=== PATIENT | female | born 1935 | race Caucasian/White ===

== ENCOUNTER 2017-03-28 09:25 | Emergency (ER) | payer MEDICARE ==
--- NOTE | 2017-03-28 10:05 | ERNOTE ---
Trauma/Assault HPI - Narrative Date of Service: 03/28/17 - General Stated Complaint: KNOCKED DOWN LEFT SIDE AND HEAD PAIN Time Seen by Provider: 03/28/17 09:49 Source: patient Exam Limitations: no limitations - Immun/Allergies/Home Medications Immunizations: IMMUNIZATION HX Immunizations Up to Date Yes History of Influenza Vaccine Yes Hx Pneumococcal Vaccination Yes Allergies/Adverse Reactions: Allergies ciprofloxacin Allergy (Severe, Verified 03/28/17 09:39) Shortness of Breath kiwi Allergy (Mild, Verified 03/28/17 09:39) Hives lorazepam Allergy (Verified 03/28/17 09:39) clindamycin Adverse Reaction (Intermediate, Verified 03/28/17 09:39) Other Hallucinations Sulfa (Sulfonamide Antibiotics) Adverse Reaction (Mild, Verified 03/28/17 09:39) Nausea Home Medications: HOME MEDICATIONS Aspirin [Aspirin Enteric Coated] 162.5 mg PO BID 08/27/15 [Last Taken 07/04/16] Carvedilol [Coreg] 12.5 mg PO BID 08/27/15 [Last Taken 07/05/16 05:00] Lisinopril [Prinivil] 20 mg PO DAILY 08/27/15 [Last Taken 07/04/16] Multivit-Min/FA/Lycopen/Lutein [Centrum Silver Tablet] 1 each PO DAILY 08/27/15 [Last Taken 07/04/16] Simvastatin [Zocor] 20 mg PO HS 08/27/15 [Last Taken 07/04/16] Vit C/E/Zn/Coppr/Lutein/Zeaxan [Ocuvite Lutein & Zeaxanthin Cp] 1 each PO DAILY 08/27/15 [Last Taken 07/04/16] Vitamin B Complex Vit C No.4 [Super B Complex] 150 mg PO DAILY 08/27/15 [Last Taken 07/04/16] metFORMIN HCL [Glucophage] 1,000 mg PO BIDWM 08/27/15 [Last Taken 07/04/16] Ascorbic Acid/Vitamin E/Biotin [Hair Skin Nails-Biotin Gummies] 1 each PO DAILY 06/25/16 [Last Taken 07/04/16] Ca/D3/Mag Ox/Zinc/Bakery Machine Mechanic Supervisor/Marv/Bor [Calcium 600+D3 Plus Caplet] 1 each PO DAILY 09/09 [Last Taken 07/04/16] Naproxen Sodium [Aleve] 220 mg PO Q8H 06/25/16 [Last Taken 07/04/16] - History of Present Illness Narrative: Pt. ambulates into ER with c/o L shoulder and headache after she was knocked down by a goat yesterday at 1530. Pt. denies any LOC but does state that she had to lie there for 20 minutes to get her bearings until she was able to get up and walk to the house. Pt. states that she takes an aspirin a day and that she has a hx of shoulder problems but states that it usually is not that bad. Pt. denies any numbness tingling, dizziness, Nausea, vomiting, SOB, CP, or posterior midline neck pain. Pt. does c/o L lateral neck pain and headache with decreased ROM in affected shoulder. Pt. states that it inhibited her sleep and she denies any alleviating factors or prehospital treatment. Review of Systems - Review of Systems Constitutional: Present: no symptoms reported. Absent: recent illness, fever, chills, weakness, fatigue, malaise EYE: Present: no symptoms reported ENT: Present: no symptoms reported Respiratory: Present: no symptoms reported. Absent: shortness of breath, cough , wheezing Cardiology: Present: no symptoms reported. Absent: chest pain, palpitations, edema Gastrointestinal/Abdominal: Present: no symptoms reported. Absent: nausea, vomiting, diarrhea Genitourinary: Present: no symptoms reported Musculoskeletal: Present: neck pain - L lateral, joint pain - L shoulder. Absent: back pain Skin: Present: no symptoms reported Neurological: Present: headache. Absent: dizziness/light-headedness, numbness, tingling All Other Systems: All systems neg except as marked - Patient's Past Medical History Patient History - Medical: Diabetes Type 2, GERD Patient History - Cardiac/Respiratory: Hypertension, Hyperlipidemia, Pneumonia, Other Patient History - Cancer: No Hx of Cancer Patient History - Surgical Procedures: Cataracts, Cholecystectomy, Colonoscopy, D & C, Total Knee Replacement, Tubal Ligation, T & A, Other Patient History - Other: None LMP (females 10-50): Menopausal - Family History Mother Family History - Medical: Diabetes Type 2 Family History - Cardiac/Respiratory: CHF - Social History Living Situations: home Abuse History: No History of abuse Psych History: No pertinent hx Smoking Status: Never smoker Alcohol Use: none Drug Use: none - Immunizations Immunizations Up to Date: Yes Hx Pneumococcal Vaccination: Yes History of Influenza Vaccine: Yes Physical Exam - Physical Exam General Appearance: Present: wd/wn, alert, no apparent distress Head Exam: Present: contusions - L occiput with superficial open abrasion 1cm x 0.3cm Eye Exam: Normal inspection: bilateral, PERRL: bilateral, EOMI: bilateral Ears, Nose, Throat: Present: normal ENT inspection, normal pharynx Neck: Present: tender lateral - L post SCM muscle. Absent: tender posterior midline Respiratory: Present: no respiratory distress, normal breath sounds, no accessory muscle use, chest nontender, lungs clear Cardiovascular/Chest: Present: regular rate, rhythm, normal peripheral pulses, systolic murmur Gastrointestinal/Abdominal: Present: normal bowel sounds, nontender, nondistended, soft, no organomegaly Back Exam: Present: normal inspection, normal range of motion, no vertebral tenderness Extremity Exam: Present: decreased range of motion, bony tenderness - L clavicle and prox humerus, joint swelling - L shoulder Neurological Exam: Present: alert, oriented, normal mood/affect, no motor/ sensory deficits Skin Exam: Present: normal color, warm/dry. Absent: pallor, skin rash - C-Spine cleared by: Neg history & exam - T, L-Spine cleared by: Neg hx and exam ED Progress - Date and Time Seen: Date and Time: 03/28/17 10:42 Pt. is on naproxen currently and feel that narcotics would be dangerous in this elderly woman with multiple falls so will have her placed in sling and start on Tylenol 1 gram q 6 hr scheduled. - Results and Orders Patient's Lab Results:: I have reviewed the patient's lab results. - Vital Signs Patient's Vital Signs:: I have reviewed the patient's vital signs. Vital Signs: Vital Signs 03/28/17 09:35 Temperature 36.7 C Pulse Rate 84 Respiratory 16 Rate Blood Pressure 156/67 O2 Sat by Pulse 99 Oximetry - X-Ray X-Ray #1 X-Ray: shoulder Interpretation: Reviewed by me X-ray Comments: no acute fractures - CT/Ultrasound CT/Ultrasound Narrative: CT head without any acute process - Progress/Reassessment Chief Complaint: Fall Departure Clinical Impression: Head contusion Qualifiers: Encounter type: initial encounter Contusion of head detail: scalp Qualified Code(s): S00.03XA - Contusion of scalp, initial encounter Rotator cuff (capsule) sprain Qualifiers: Encounter type: initial encounter Laterality: left Qualified Code(s): S43.422A - Sprain of left rotator cuff capsule, initial encounter - Departure Disposition: Home self-care Condition: Good Instructions: Head Injury, Adult, [id number], Rotator Cuff Injury Additional Instructions: Please follow up with ortho for injection as scheduled of shoulder and follow up with Dr Martin in 2-3 days. Please start taking Tylenol 1000mg every 6hours for pain Referrals: Lore Martin DO [Primary Care Provider] -
[2017-03-28 10:12] LABS: Hematocrit 32.8 % (37.0-47.0); Hemoglobin 10.6 gm/dL (12.5-16.0); Mean Cell Volume 90.9 fl (78-100); Mean Corpuscular Hemoglobin 29.4 pg (27-31); Mean Corpuscular Hgb Conc 32.3 g/dl (32-36); Neutrophil # 4.7 K/mm3 (1.3-6.0); Neutrophil % 66.2 % (42-75.0); Platelet Count 209 K/mm3 (150-450); Red Blood Count 3.61 M/mm3 (4.2-5.4); Red Cell Distribution Width 12.3 % (11.5-14.0); White Blood Count 7.1 K/mm3 (4.0-10.5)
[2017-03-28 10:23] LABS: Albumin * 3.8 gm/dl (3.4-5.0); Anion Gap 14.1 mmol/L (6.8-13.8); BUN/Creatinine Ratio 14.2 (9.0-21.6); Ca. Corrected For Albumin 9.2 mg/dL (8.4-10.2); Calcium * 9.4 mg/dL (7.9-10.9); Carbon Dioxide 27.6 mmol/L (24-32.6); Potassium 4.7 mmol/L (3.4-4.6); Total Protein 6.7 gm/dL (6.2-8.2)
[2017-03-28] MEDS ORDERED: KETOROLAC TROMETHAMINE 30 MG/ML VIAL IM ONE (10:40)
[2017-03-28] MEDS ORDERED: KETOROLAC TROMETHAMINE 30 MG/ML VIAL ONE (10:49)
[2017-03-28 11:01] VITALS: BP 150/74
== END 2017-03-28 11:05 | disposition home or self-care (01) ==
LOC: ER 09:25
DX: S00.03XA Contusion of scalp, initial encounter (principal); S43.422A Sprain of left rotator cuff capsule, initial encounter; W19.XXXA Unspecified fall, initial encounter; Z91.81 History of falling; E11.9 Type 2 diabetes mellitus without complications; K21.9 Gastro-esophageal reflux disease without esophagitis; I10 Essential (primary) hypertension; E78.5 Hyperlipidemia, unspecified

== ENCOUNTER 2017-07-04 05:57 | Inpatient (IN) | payer MEDICARE ==
[2017-07-04] MEDS ORDERED: ceFAZolin SODIUM 1 GM VIAL IV PRN (06:00)
[2017-07-04] MEDS ORDERED: RINGER'S SOLUTION,LACTATED 1,000 ML IV PRN (06:00)
[2017-07-04] MEDS ORDERED: INSULIN REGULAR, HUMAN 100 UNITS/ML VIAL IV ONE (07:36)
[2017-07-04] MEDS ORDERED: ONDANSETRON HCL/PF 2 MG/ML VIAL IV PRN ×2 (07:37→10:30)
[2017-07-04] MEDS ORDERED: ONDANSETRON HCL/PF 2 MG/ML VIAL ONE (07:48)
[2017-07-04] MEDS ORDERED: RINGER'S SOLUTION,LACTATED 1,000 ML IV ONE ×2 (07:55→08:52)
--- NOTE | 2017-07-04 10:29 | POSTOP NO ---
Date of Surgery: 07/04/17 Patient Tolerated the Procedure: Well Post Operative Diagnosis/Procedures: Rock Singer: Hai Saravia PA-C Post-operative Diagnosis: Rotator cuff deficient left shoulder arthrosis Finding: Above Procedure: Left reverse total shoulder Estimated Blood Loss: 100 ml Specimens: Bone for disposal
[2017-07-04] MEDS ORDERED: ACETAMINOPHEN 500 MG TABLET PO PRN (10:30)
[2017-07-04] MEDS ORDERED: ACETAMINOPHEN 500 MG TABLET PO SCH (10:30)
[2017-07-04] MEDS ORDERED: MAG HYDROX/ALUMINUM HYD/SIMETH 30 ML UDC PO PRN (10:30)
[2017-07-04] MEDS ORDERED: MAGNESIUM HYDROXIDE 30 ML UDC PO PRN (10:30)
[2017-07-04] MEDS ORDERED: diphenhydrAMINE HCL 50 MG/ML VIAL IV PRN (10:30)
[2017-07-04] MEDS ORDERED: HYDROmorphone HCL 1 MG/ML DISP.SYRIN IV PRN (10:30)
[2017-07-04] MEDS ORDERED: PROMETHAZINE HCL 5 MG in DEXTROSE 5 % IN WATER 50 ML IV PRN ×2 (10:30)
[2017-07-04] MEDS ORDERED: ZOLPIDEM TARTRATE 5 MG TABLET PO PRN (10:30)
[2017-07-04] MEDS ORDERED: LORATADINE 10 MG TABLET PO PRN (10:33)
[2017-07-04] MEDS ORDERED: PANTOPRAZOLE SODIUM 40 MG TABLET.EC PO PRN (10:33)
[2017-07-04] MEDS ORDERED: FLUTICASONE PROPIONATE 120 SPRAY INHALER NS PRN (10:33)
[2017-07-04] MEDS ORDERED: WHEAT DEXTRIN PO PRN (10:33)
[2017-07-04] MEDS: RINGER'S SOLUTION,LACTATED 1,000 ML IV PRN ×2 (11:44→20:55)
[2017-07-04] MEDS: KETOROLAC TROMETHAMINE 15 MG/ML VIAL IV SCH ×2 (11:45→16:47)
--- NOTE | 2017-07-04 12:04 | OR ---
Anesthesia Procedure Note - Anesthesia Procedure Note Date of Service: 07/04/17 Narrative: Vital Signs - Last Taken Temp 36.2 C L 07/04/17 11:59 Pulse 80 07/04/17 11:59 Resp 18 07/04/17 11:59 BP 172/76 07/04/17 11:59 Pulse Ox 97 07/04/17 11:59 O2 Oxygen Delivery Method Room Air 07/04/17 12:01 ANESTHESIA PROCEDURE NOTE Date of Procedure: 07/04/2017. Time of procedure: 754. Performed by: Maninder Magallanes CRNA Bank Operations Officer: None. Preprocedure diagnosis: Left shoulder pain, left rotator cuff tear. Post procedure diagnosis: Same. Procedure: Left ultrasound guided interacalene nerve block for postoperative analgesia. Indications: The patient is a 82 -year-old female, who is requesting a left ultrasound-guided interscalene nerve block for postoperative analgesia related to left reverse total shoulder arthroplasty. Findings: See below. Details of the procedure: The tissue over the intended target site was cleansed with ChloraPrep. 1 ml Lidocaine 1 % was infiltrated to the skin and subcutaneous tissue. Under sterile technique and ultrasound guidance a 22-gauge block needle was inserted to the left braclial plexus nerve bundle between the anterior scalene and the middle scalene muscles. 40 mL's of 0.5% bupivacaine plus epinephrine 1:200,000 was injected after negative aspiration for blood. Needle tip and spread of local anesthetic around the brachial plexus was observed throughout the injection with realtime ultrasound visualization. The needle was removed intact. No complications were noted. The images were retained in the hospital medical database . EBL: Minimal. Fluids: N/A. Specimen: N/A. Post procedure condition: The patient tolerated the procedure well. No complications were noted. Thank you for this consultation. Maninder Magallanes CRNA
[2017-07-04] MEDS: ACETAMINOPHEN WITH CODEINE 1 EACH TABLET PO PRN ×2 (13:38→20:24)
[2017-07-04] MEDS: ASPIRIN 81 MG TABLET.DR PO SCH (20:25)
[2017-07-04] MEDS: CARVEDILOL 12.5 MG TABLET PO SCH (20:27)
[2017-07-04] MEDS ORDERED: SENNOSIDES/DOCUSATE SODIUM 1 TAB TABLET PO SCH (21:00)
[2017-07-04] MEDS ORDERED: ROSUVASTATIN CALCIUM 20 MG TABLET PO SCH (21:00)
[2017-07-05] MEDS: KETOROLAC TROMETHAMINE 15 MG/ML VIAL IV SCH ×3 (00:27→11:22)
[2017-07-05] MEDS: ACETAMINOPHEN WITH CODEINE 1 EACH TABLET PO PRN ×2 (00:28→05:12)
[2017-07-05 05:12] VITALS: BP 108/43
[2017-07-05 05:50] LABS: Hematocrit 27.4 % (37.0-47.0); Mean Cell Volume 90.4 fl (78-100); Mean Corpuscular Hemoglobin 29.7 pg (27-31); Mean Corpuscular Hgb Conc 32.8 g/dl (32-36); Mean Platelet Volume 9.7 fl (6.0-9.5); Platelet Count 178 K/mm3 (150-450); Red Blood Count 3.03 M/mm3 (4.2-5.4); Red Cell Distribution Width 11.8 % (11.5-14.0); White Blood Count 9.4 K/mm3 (4.0-10.5)
[2017-07-05 06:02] LABS: Anion Gap 7.7 mmol/L (6.8-13.8); BUN/Creatinine Ratio 11.9 (9.0-21.6); Calcium * 8.8 mg/dL (7.9-10.9); Carbon Dioxide 29.8 mmol/L (24-32.6); Estimated Creat Clear 25.1; Potassium 4.5 mmol/L (3.4-4.6)
--- NOTE | 2017-07-05 08:08 | DS ---
(1) Rotator cuff tear arthropathy Problem: Chronic (2) Acute blood loss anemia Problem: Acute (3) Diabetes mellitus type 2 in nonobese Problem: Chronic (4) Hyperlipemia Problem: Chronic (5) Hypertension Problem: Chronic (6) Spinal stenosis Problem: Chronic Description of Stay: Mrs. Hand was admitted for pain control and IV antibiotics after undergoing reverse total shoulder arthroplasty on the left shoulder for chronic rotator cuff arthropathy. Patient reported main complaint was paresthesias in her hand as well as dysesthesias of her hand with mild left shoulder pain. She reports it is improving this morning. She reports she is tolerating pain medicine well. No nausea or vomiting or hallucinations associated with it. On exam she reported sensation intact to light touch throughout left upper extremity. She had no gross swelling in her lay out former. Bandages were clean dry intact. Overall course of stay was uneventful. She'll be discharged later this morning after working with therapy. She was instructed to keep her bandages clean and dry. We'll order home health to help with activities of daily living as well as OT for passive shoulder range of motion. She'll follow up in our office in 12-14 days for staple removal. She was discharged on her home medications as well as a prescription for Tylenol 3 for pain control. She is to call if any increasing fevers drainage redness warmth or concerns. Procedures Performed: see notes below List Procedures: Left reverse total shoulder arthroplasty Discharge Disposition: home augusto Disposition: Home self-care Condition: Good Discharge Activity: Activity as tolerated Discharge Diet: Consistent carbs, Low salt, Low fat/chol Senior Living Therapy: Occupation Therapy - [facility] Referrals: Lore Martin DO [Primary Care Provider] - Consultation Done:: Home augusto for ADLs and OT for codman exercises Additional Patient Instructions (free text): Follow up with Dr. Rabago on 07/19/2017 at 09:45 am. Prescriptions (Any new or edited meds): Acetaminophen with Codeine [Tylenol-Codeine 300 MG/30 MG] 1 each PO Q4H PRN #60 tablet PRN Reason: Pain Sennosides/Docusate Sodium [Senokot-S] 2 tab PO HS #30 tablet Complete Home Medications List: Complete Home Medication List: Aspirin [Aspirin Enteric Coated] 162.5 mg PO BID 08/27/15 Carvedilol [Coreg] 12.5 mg PO BID 08/27/15 Lisinopril [Prinivil] 20 mg PO DAILY 08/27/15 Multivit-Min/FA/Lycopen/Lutein [Centrum Silver Tablet] 1 each PO DAILY 08/27/15 metFORMIN HCL [Glucophage] 1,000 mg PO BIDWM 08/27/15 Naproxen Sodium [Aleve] 220 mg PO BID PRN 06/25/16 Acetaminophen with Codeine [Tylenol with Codeine #3 Tablet] 1 tab PO Q4H PRN 03/10 Blood-Glucose Meter [Blood Glucose Monitoring] 1 each MC BID 07/01/17 Calcium Carbonate/Vitamin D3 [Calcium 600-Vit D3 400 Tablet] 1 each PO DAILY 03/10 Fluticasone Propionate [Flonase] 2 spray NS DAILY PRN 07/01/17 Loratadine [Claritin] 10 mg PO DAILY PRN 07/01/17 Lutein/Zeaxanthin [Ocuvite Lutein 25-5 mg Softgel] 1 each PO DAILY 07/01/17 Omeprazole 40 mg PO DAILY PRN 07/01/17 Rosuvastatin Calcium [Crestor] 40 mg PO HS 07/01/17 Sennosides/Docusate Sodium [Senna-S Tablet] 1 - 2 each PO PRN PRN 07/01/17 Vitamin B Complex 1 each PO DAILY 07/01/17 Vitamin C/Biotin [Hair, Skin and Nails Gummies] 1 each PO DAILY 07/01/17 Wheat Dextrin [Benefiber] 1 tbs PO PRN PRN 07/01/17 Acetaminophen with Codeine [Tylenol-Codeine 300 MG/30 MG] 1 each PO Q4H PRN #60 tablet 07/05/17 Sennosides/Docusate Sodium [Senokot-S] 2 tab PO HS #30 tablet 07/05/17
[2017-07-05] MEDS ORDERED: VITAMIN C PO SCH (09:00)
[2017-07-05] MEDS ORDERED: LISINOPRIL 20 MG TABLET PO SCH (09:00)
[2017-07-05] MEDS ORDERED: VITAMIN B COMP W-C 1 TAB TABLET PO SCH (09:00)
[2017-07-05] MEDS ORDERED: CALCIUM CARBONATE/VITAMIN D3 1 TAB TABLET PO SCH (09:00)
[2017-07-05] MEDS ORDERED: MULTIVIT-MIN/FA/LYCOPEN/LUTEIN 1 TAB TABLET PO SCH (09:00)
[2017-07-05] MEDS ORDERED: BETA-CAROTENE(A) W-C , E/MIN 1 TAB TABLET PO SCH (09:00)
[2017-07-05] MEDS ORDERED: BIOTIN PO SCH (09:00)
[2017-07-05] MEDS: ASPIRIN 81 MG TABLET.DR PO SCH (09:03)
[2017-07-05] MEDS: CARVEDILOL 12.5 MG TABLET PO SCH (09:03)
== END 2017-07-05 12:00 | disposition home health service (06) | DRG 483 ==
LOC: MS 05:57
PROVIDERS: ADMIT Orthopaedic Surgery; ATTEND Orthopaedic Surgery
PROC: 0RRK00Z Replacement of Left Shoulder Joint with Reverse Ball and Socket Synthetic Substitute, Open Approach (ICD-10-PCS; principal; 2017-07-04)
DX: E11.9 Type 2 diabetes mellitus without complications; M19.012 Primary osteoarthritis, left shoulder; I10 Essential (primary) hypertension; D62 Acute posthemorrhagic anemia; Z79.84 Long term (current) use of oral hypoglycemic drugs; Z79.82 Long term (current) use of aspirin

== ENCOUNTER 2017-09-05 13:59 | Emergency (ER) | payer MEDICARE ==
--- NOTE | 2017-09-05 14:32 | ERNOTE ---
Medical Problem HPI - Narrative Date of Service: 09/05/17 - General Time Seen by Provider: 09/05/17 14:08 Source: patient Exam Limitations: no limitations - Immun/Allergies/Home Medications Immunizations: IMMUNIZATION HX Immunizations Up to Date Yes History of Influenza Vaccine Yes Hx Pneumococcal Vaccination Yes Allergies/Adverse Reactions: Allergies ciprofloxacin Allergy (Intermediate, Verified 07/04/17 06:42) Shortness of Breath kiwi Allergy (Intermediate, Verified 07/04/17 06:42) Swelling of Tongue lorazepam Allergy (Unknown, Verified 07/04/17 06:42) clindamycin Adverse Reaction (Intermediate, Verified 07/04/17 06:42) "SEES THINGS" Sulfa (Sulfonamide Antibiotics) Adverse Reaction (Mild, Verified 07/04/17 06:42) RASH, UPSET STOMACH tramadol [From Ultram] Adverse Reaction (Mild, Verified 07/04/17 06:42) HALLUCINATIONS Home Medications: HOME MEDICATIONS Aspirin [Aspirin Enteric Coated] 162.5 mg PO BID 08/27/15 [Last Taken 07/04/16] Carvedilol [Coreg] 12.5 mg PO BID 08/27/15 [Last Taken 07/05/16 05:00] Lisinopril [Prinivil] 20 mg PO DAILY 08/27/15 [Last Taken 07/04/16] Multivit-Min/FA/Lycopen/Lutein [Centrum Silver Tablet] 1 each PO DAILY 08/27/15 [Last Taken 07/04/16] metFORMIN HCL [Glucophage] 1,000 mg PO BIDWM 08/27/15 [Last Taken 07/04/16] Naproxen Sodium [Aleve] 220 mg PO BID PRN 06/25/16 [Last Taken 07/04/16] Acetaminophen with Codeine [Tylenol with Codeine #3 Tablet] 1 tab PO Q4H PRN 03/10 [Last Taken Unknown] Blood-Glucose Meter [Blood Glucose Monitoring] 1 each MC BID 07/01/17 [Last Taken Unknown] Calcium Carbonate/Vitamin D3 [Calcium 600-Vit D3 400 Tablet] 1 each PO DAILY 03/10 [Last Taken Unknown] Fluticasone Propionate [Flonase] 2 spray NS DAILY PRN 07/01/17 [Last Taken Unknown] Loratadine [Claritin] 10 mg PO DAILY PRN 07/01/17 [Last Taken Unknown] Lutein/Zeaxanthin [Ocuvite Lutein 25-5 mg Softgel] 1 each PO DAILY 07/01/17 [ Last Taken Unknown] Omeprazole 40 mg PO DAILY PRN 07/01/17 [Last Taken Unknown] Rosuvastatin Calcium [Crestor] 40 mg PO HS 07/01/17 [Last Taken Unknown] Sennosides/Docusate Sodium [Senna-S Tablet] 1 - 2 each PO PRN PRN 07/01/17 [ Last Taken Unknown] Vitamin B Complex 1 each PO DAILY 07/01/17 [Last Taken Unknown] Vitamin C/Biotin [Hair, Skin and Nails Gummies] 1 each PO DAILY 07/01/17 [Last Taken Unknown] Wheat Dextrin [Benefiber] 1 tbs PO PRN PRN 07/01/17 [Last Taken Unknown] Acetaminophen with Codeine [Tylenol-Codeine 300 MG/30 MG] 1 each PO Q4H PRN #60 tablet 07/05/17 [Last Taken Unknown] Sennosides/Docusate Sodium [Senokot-S] 2 tab PO HS #30 tablet 07/05/17 [Last Taken Unknown] - History of Present History Narrative: Pt. comes in with c/o artery being clogged by the [facility] screening that she attended today and was recommended to come to the ER by them. Pt. denies any dizziness, lightheadedness, weakness, fatigue, malaise, CP, headache, alleviating or aggravating factors. Pt. denies any prehospital treatment. Timing: unsure Severity: moderate Modifying Factors - (Improves): Present: other - denies Modifying Factors - (Worsens): Present: other - denies Review of Systems - Review of Systems Constitutional: Present: no symptoms reported. Absent: fever, chills, weakness , fatigue, malaise EYE: Present: no symptoms reported. Absent: eye pain, double vision ENT: Present: no symptoms reported. Absent: nose pain, nose congestion, nasal drainage, sore throat Respiratory: Present: no symptoms reported. Absent: shortness of breath, cough , wheezing Cardiology: Present: no symptoms reported. Absent: chest pain, palpitations, edema Gastrointestinal/Abdominal: Present: no symptoms reported. Absent: nausea, vomiting, diarrhea, abdominal pain Genitourinary: Present: no symptoms reported. Absent: frequency, decreased urinary output Musculoskeletal: Present: no symptoms reported. Absent: See HPI, back pain, neck pain, joint pain Skin: Present: no symptoms reported. Absent: rash, change in hair/nails Neurological: Present: no symptoms reported. Absent: headache, dizziness/light- headedness, numbness, tingling Endocrine: Present: no symptoms reported Hematologic/Lymphatic: Present: no symptoms reported. Absent: easy bruising, easy bleeding All Other Systems: All systems neg except as marked - Patient's Past Medical History Patient History - Medical: Diabetes Type 2, GERD Patient History - Cardiac/Respiratory: Hypertension, Hyperlipidemia, Pneumonia Patient History - Cancer: No Hx of Cancer Patient History - Surgical Procedures: Cataracts, Cholecystectomy, Colonoscopy, D & C, Total Knee Replacement, Tubal Ligation, T & A, Other Patient History - Other: None - Family History Mother Family History - Medical: Diabetes Type 2 Family History - Cardiac/Respiratory: CHF Family History - Cancer: No pertinent family hx Father Family History - Medical: No pertinent hx Family History - Cardiac/Respiratory: CVA/Stroke, Hyperlipidemia Family History - Cancer: No pertinent family hx Maternal Grandmother Family History - Medical: Diabetes Type 2 Family History - Cardiac/Respiratory: No pertinent hx Family History - Cancer: No pertinent family hx - Social History Abuse History: No History of abuse Psych History: No pertinent hx - Immunizations Immunizations Up to Date: Yes Hx Pneumococcal Vaccination: Yes History of Influenza Vaccine: Yes Physical Exam - Physical Exam General Appearance: Present: wd/wn, alert, no apparent distress Head Exam: Present: normal inspection, no evidence of injury, no tenderness w palpation Eye Exam: Normal inspection: bilateral Ears, Nose, Throat: Present: normal ENT inspection Neck: Present: nontender, supple, full range of motion, carotid bruit - L. Absent: lymphadenopathy (R), lymphadenopathy (L) Respiratory: Present: no respiratory distress, normal breath sounds, no accessory muscle use, chest nontender, lungs clear Cardiovascular/Chest: Present: regular rate, rhythm, no murmur, normal peripheral pulses Gastrointestinal/Abdominal: Present: normal bowel sounds, nontender, nondistended, soft, no organomegaly Back Exam: Present: normal inspection, normal range of motion, no CVA tenderness , no vertebral tenderness Extremity Exam: Present: normal inspection Neurological Exam: Present: alert, oriented, normal mood/affect, no motor/ sensory deficits, 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 Absent: pallor, skin rash ED Progress - Date and Time Seen: Date and Time: 09/05/17 16:[address] Osullivan and as pt. R sided carotid stonosis is worsening then he will follow up with her in the clinic on Tuesday between 2 and 4 will schedule - Results and Orders Patient's Lab Results:: I have reviewed the patient's lab results. Results and Orders: Laboratory Results - last 24 hr 09/05/17 09/05/17 09/05/17 14:35 14:35 14:35 WBC 8.4 RBC 3.76 L Hgb 10.9 L Hct 33.6 L MCV 89.4 MCH 29.0 MCHC 32.4 RDW 12.8 Plt Count 242 MPV 9.8 H Immature Gran % (Auto) 0.20 Immature Gran # (Auto) 0.02 Neutrophils % 59.4 Lymphocytes % 24.1 Monocytes % 7.4 Eosinophils % 8.3 H Basophils % 0.6 Nucleated RBC % 0.0 Neutrophils # 5.0 Lymphocytes # 2.0 Monocytes # 0.6 Eosinophils # 0.7 Absolute Basophils 0.1 ESR 35 H PT INR (Anticoag Therapy) PTT ([facility]) Sodium 139 Plasma Sodium 139 Potassium 4.4 Chloride 105 Carbon Dioxide 25.0 Anion Gap 13.4 BUN 18 Creatinine 1.18 Est GFR (Non-Af Amer) 47 L BUN/Creatinine Ratio 15.3 Random Glucose 124 H Calcium 9.7 Calcium Adj for Albumin 9.5 Total Bilirubin 0.8 AST 21 ALT 29 Alkaline Phosphatase 64 Troponin I Less than 0.017 C-Reactive Prot, Quant Less than 0.2 Total Protein 7.3 Albumin 3.8 09/05/17 14:35 WBC RBC Hgb Hct MCV MCH MCHC RDW Plt Count MPV Immature Gran % (Auto) Immature Gran # (Auto) Neutrophils % Lymphocytes % Monocytes % Eosinophils % Basophils % Nucleated RBC % Neutrophils # Lymphocytes # Monocytes # Eosinophils # Absolute Basophils ESR PT 10.9 INR (Anticoag Therapy) 1.09 PTT ([facility]) 26.1 Sodium Plasma Sodium Potassium Chloride Carbon Dioxide Anion Gap BUN Creatinine Est GFR (Non-Af Amer) BUN/Creatinine Ratio Random Glucose Calcium Calcium Adj for Albumin Total Bilirubin AST ALT Alkaline Phosphatase Troponin I C-Reactive Prot, Quant Total Protein Albumin - Vital Signs Patient's Vital Signs:: I have reviewed the patient's vital signs. - EKG EKG: RBBB, LVH, other - SR no acute changes EKG read: Interp. by me - X-Ray X-Ray #1 X-Ray: chest Interpretation: Reviewed by me X-ray Comments: Chest PA Lateral * Hyperinflated lung volumes. No consolidation or mass. No significant vascular congestion suggested. No pneumothorax or pleural fluid collections. Cardiac silhouette within normal limits. Moderate tortuosity of the thoracic aorta noted, with overlying atherosclerotic vascular calcifications. Trachea is in normal position. Bones show degenerative changes and scoliosis of the spine. Patient status post left glenohumeral joint reverse arthroplasty. IMPRESSION: 1. No focal acute cardiopulmonary finding. 2. Additional comments are as above. Electronically signed by Hortencia Jennings M.D.. - CT/Ultrasound CT/Ultrasound Narrative: CTA Neck There is streak artifact from the patient's left shoulder reverse arthroplasty hardware, which causes some obscuration of the details of the aortic arch. Visualized portions of the arch demonstrates atherosclerotic vascular calcifications without definite signs of aneurysm, or intimal tear. The great vessels of the mediastinum demonstrates normal branching pattern without evidence for definite occlusion. Mild stenosis of the left subclavian artery noted. Right side: The common carotid artery appears to be patent. There is a eccentric calcified plaque at the carotid bulb, with visual estimate of the narrowing likely <50% on the axial images, however , the mid to distal internal carotid artery on the right demonstrates severe luminal narrowing, with a string sign suggestive of nearly occluded appearance seen all the way from the mid segment up to the level of the skull base and the cavernous segment. Similar findings seen previously and therefore this does not appear to be acute however could be a sequela of previous dissection, or vasculitis and clinical correlation is advised. The right external carotid artery appears to be patent. The vertebral artery patent. Left side: The left common carotid artery appears to be somewhat tortuous, but patent. At the left carotid bulb/proximal segment of the left internal carotid artery, there is a predominantly calcified plaque causing stenosis seen best on series 11 image 19. The contrast filled lumen, excluding the calcified portion of the lumen measures approximately 1.9 mm on the oblique sagittal reconstruction, with the normal caliber of the segment distal to the end of the plaque measuring approximately 6.4 mm, which calculates to be approximately 70% stenosis, although visually appears to be potentially more than that at the proximal aspect of the calcified plaque. The rest of the left internal carotid artery demonstrates patent appearance of to the level of the skull base/ cavernous sinus as visualized. There is mild stenosis of the external carotid artery. The vertebral artery patent. 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 Nasopharynx grossly unremarkable. Oropharynx obscured by patient's dental hardware. The vallecula, epiglottis, and piriform sinuses are grossly normal. Vocal cords are grossly symmetric. The tracheal air column is visualized, grossly normal. Lung apices as visualized, grossly unremarkable without definite consolidation. Somewhat hyperlucent appearance of lungs which could represent emphysema. Correlate clinically. The thyroid gland grossly normal. The submandibular and parotid glands are grossly symmetric. The soft tissue structures of the neck demonstrates no definite signs of a focal mass or lymphadenopathy. Visualized portions of the paranasal sinuses demonstrate trace air-fluid levels within the maxillary sinuses. The mastoid air cells are symmetrically pneumatized without definite focal finding. Degenerative changes of the cervical spine noted. No definite focal destructive bone lesion. IMPRESSION: 1. Nearly occluded appearance of the mid to distal segments of the right internal carotid artery, up to the level of the skull base and cavernous sinus, with similar findings seen previously. This is suggestive of sequela previous dissection or vasculitis. Correlate clinically. 2. At least 70% narrowing of the proximal left internal carotid artery. 3. Vertebral arteries are patent. 4. 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 5. Additional comments are as above. 6. Consider vascular surgery consultation. Ordering provider Sandra Ahmadi was informed regarding the above results by telephone on 09/05/2017 4:14 PM. Electronically signed by Hortencia Jennings M.D.. - Progress/Reassessment Progress:: Unchanged Departure Clinical Impression: Carotid stenosis, bilateral - Departure Disposition: Home self-care Condition: Good Instructions: Carotid Artery Disease, [id number] Additional Instructions: Please return to ER if you develop signs of a stroke. Please follow up with Dr Osullivan on Tuesday as scheduled at 1:15. Referrals: Lore Martin DO [Primary Care Provider] -
[2017-09-05 14:37] LABS: Hematocrit 33.6 % (37.0-47.0); Hemoglobin 10.9 gm/dL (12.5-16.0); Mean Cell Volume 89.4 fl (78-100); Mean Corpuscular Hgb Conc 32.4 g/dl (32-36); Mean Platelet Volume 9.8 fl (6.0-9.5); Neutrophil % 59.4 % (42-75.0); Platelet Count 242 K/mm3 (150-450); Red Blood Count 3.76 M/mm3 (4.2-5.4); Red Cell Distribution Width 12.8 % (11.5-14.0); White Blood Count 8.4 K/mm3 (4.0-10.5)
[2017-09-05 14:54] LABS: Prothrombin Time (Patient) 10.9 Seconds (9.0-11.0)
[2017-09-05 14:57] LABS: INR 1.09 INR (0.90-1.10); Partial Thrombolplastin Time 26.1 Seconds (24-32)
[2017-09-05 15:03] LABS: ALT 29 U/L (19-67); AST 21 U/L (0-48); Albumin * 3.8 gm/dl (3.4-5.0); Alkaline Phosphatase * 64 U/L (50-170); Anion Gap 13.4 mmol/L (6.8-13.8); BUN/Creatinine Ratio 15.3 (9.0-21.6); Bilirubin, Total 0.8 mg/dL (0.0-1.1); Blood Urea Nitrogen 18 mg/dL (3-23); Ca. Corrected For Albumin 9.5 mg/dL (8.4-10.2); Calcium * 9.7 mg/dL (7.9-10.9); Chloride 105 mmol/L (97-106); Glucose * 124 mg/dL (70-110); Potassium 4.4 mmol/L (3.4-4.6); Sodium 139 mmol/L (132-142); Total Protein 7.3 gm/dL (6.2-8.2); Troponin I Less than 0.017 ng/ml (0.00-0.10)
[2017-09-05 16:22] VITALS: BP 155/64
[2017-09-07 16:33] LABS: BUN/Creatinine Ratio 14.1 (9.0-21.6)
== END 2017-09-05 16:54 | disposition home or self-care (01) ==
LOC: ER 13:59
DX: I65.23 Occlusion and stenosis of bilateral carotid arteries